=== PATIENT | male | born 1955 | race Caucasian/White ===

== ENCOUNTER 2018-10-06 11:34 | Emergency (ER) | payer OTHER ==
[~2018-10-06] VITALS: Ht 182.9 cm; Wt 112.0 kg
[~2018-10-06 11:34] MED LIST: ABILIFY10 MG PO; CAMPRAL333 M1 PO; CATAPRES0.1 MG PO; CIALIS10 MG PO; HYDROXYZINE HCL25 MG PO; LEXAPRO10 MG PO; LIOTHYRONINE S25 MCG PO; LIPITOR10 MG PO; NALTREXONE HCL50 MG PO; NEURONTIN300 MG PO; NORCO 7.5-3251 EACH PO; OXYCODONE HCL10 MG PO; THIAMINE HCL100 MG PO; TRAMADOL HCL50 MG PO; TRAZODONE HCL50 MG PO; VIVITROL380 MG IM; WELLBUTRIN SR150 MG PO
[2018-10-06] MEDS ORDERED: VENLAFAXINE HC150 MG PO (11:46)
[2018-10-06] MEDS ORDERED: TAMIFLU75 MG PO (12:32)
== END 2018-10-06 12:48 | disposition home or self-care (01) ==
LOC: ED 11:34
DX: R50.9 Fever, unspecified (principal); R05 Cough; R51 Headache; G62.9 Polyneuropathy, unspecified; F32.9 Major depressive disorder, single episode, unspecified; F17.200 Nicotine dependence, unspecified, uncomplicated; Z79.899 Other long term (current) drug therapy
CPT/HCPCS: 87502; 99283

== ENCOUNTER 2021-01-13 19:07 | Emergency (ER) | payer OTHER ==
[~2021-01-13] VITALS: Ht 182.9 cm; Wt 104.3 kg
[~2021-01-13 19:07] MED LIST changes: +TAMIFLU75 MG PO; +VENLAFAXINE HC150 MG PO
[2021-01-13] MEDS ORDERED: NALTREXONE HCL50 MG PO (19:25)
[2021-01-13] MEDS ORDERED: GABAPENTIN600 MG PO (19:26)
== END 2021-01-13 23:27 | disposition home or self-care (01) ==
LOC: ED 19:07
DX: J98.8 Other specified respiratory disorders (principal); B97.89 Other viral agents as the cause of diseases classified elsewhere; Z20.822 Contact with and (suspected) exposure to COVID-19; E78.00 Pure hypercholesterolemia, unspecified; F17.200 Nicotine dependence, unspecified, uncomplicated; Z79.899 Other long term (current) drug therapy
CPT/HCPCS: 71045; 80053; 81001; 83605; 85025; 87040; 99283-25; C9803; U0003

== ENCOUNTER 2021-02-20 02:18 | Emergency (ER) | payer OTHER ==
[~2021-02-20] VITALS: Ht 182.9 cm; Wt 104.3 kg
[~2021-02-20 02:18] MED LIST changes: +GABAPENTIN600 MG PO
[2021-02-20] MEDS ORDERED: PROTONIX40 MG PO (06:11)
--- NOTE | 2021-02-20 12:45 | EKG ---
[facility] [address] [facility] [place] [address] Signed Sinus rhythm with occasional premature ventricular complexes Otherwise normal ECG No previous ECGs available Confirmed by JAMEY WATTS MD ([id number]) on 02/20/2021 12:45:33 PM Electronically Signed By: JAMEY WATTS MD 02/20/21 1245 PATIENT NAME: FLO BRAVO Electrocardiogram DATE OF : 57 PHYSICIAN: JAMEY WATTS MD REPORT #: [id number] REPORT IS CONFIDENTIAL AND NOT TO BE RELEASED WITHOUT AUTHORIZATION
== END 2021-02-20 06:20 | disposition home or self-care (01) ==
LOC: ED 02:18
DX: R07.9 Chest pain, unspecified (principal); E78.00 Pure hypercholesterolemia, unspecified; F17.200 Nicotine dependence, unspecified, uncomplicated; Z79.899 Other long term (current) drug therapy
CPT/HCPCS: 71045; 80053; 83690; 83735; 84484; 85025; 93005; 93010; 99285-25

== ENCOUNTER 2023-06-07 05:55 | Day surgery (SDC) | payer MEDICARE, OTHER ==
[~2023-06-07] VITALS: Ht 182.9 cm; Wt 109.0 kg
[~2023-06-07 05:55] MED LIST changes: +PROTONIX40 MG PO
[2023-06-07 06:08] VITALS: BP 135/83
[2023-06-07] MEDS ORDERED: FLONASE ALLERG9.9 ML NAS (06:10)
[2023-06-07] MEDS ORDERED: APPLE CIDER VI300 MG PO (06:10)
--- NOTE | 2023-06-07 07:18 | NUR ---
PT IN GOOD SPIRITS. CONSENTED TO PRAYER. PRAYED FOR SUCCESSFUL PROCEDURE AND GÓMEZ RECOVERY.
--- NOTE | 2023-06-07 08:33 | NUR ---
06/07/23 0833 Tania Ga PT AWAKE, NO COMPLAINTS OF N/V. ENCOURAGED TO PASS GAS TO RELIEVE ANY STOMACH ACHES.
[2023-06-07 08:52] VITALS: BP 139/88
--- NOTE | 2023-06-07 09:08 | OR ---
[facility] [address] [place], [place] [address] Signed DATE OF OPERATION: 06/07/2023 SURGEON: Phoebe Nichols MD PREOPERATIVE DIAGNOSES: 1. Allergic rhinitis with phlegm. 2. History of distal gastritis. 3. History of hiatal hernia. 4. History of esophagitis. 5. Father with colonic polyps. 6. Diverticulosis. POSTOPERATIVE DIAGNOSES: 1. Mild gastroduodenitis. 2. Small hiatal hernia (40-38 cm). 3. GE junction at 38 cm. 4. Moderate sigmoid diverticulosis. 5. Minimal to moderate internal hemorrhoids. PROCEDURES: 1. EGD with CLOtest and biopsies of the pyloric bulb, antrum and GE junction. 2. Colonoscopy without biopsy. ESTIMATED BLOOD LOSS: None. INDICATIONS: Flo is a 67-year-old gentleman I have known for quite some time. More recently, he went to see his ear, nose and throat surgeon because of phlegm. It looks like he is dealing with allergic rhinitis and using a nasal spray. He was asked to come see me for upper endoscopy by his ear, nose and throat surgeon. I had reviewed his extensive records before he came in the office. I helped him with an upper endoscopy in 2013 at the age of 58. He had some distal gastritis along with distal esophagitis and a small hiatal hernia. He happened to see Dr. Madsen in 2008 at the age of 53 and had the same findings. He had taken an enormous amount of Versed and fentanyl because of his history of alcoholism and Xanax. Consequently, we asked for monitored anesthesia care on this occasion and it worked out very nicely. We know his father has a history of colonic polyps. I helped Flo with followup colonoscopy in 2018 at the age of 62. Again, he had diverticulosis. We asked him to follow up in 5 years. He currently has no lower GI complaints. He said he is enjoying his assisted. In the office, I gave Tyler Electronically Signed By: PHOEBE NICHOLS MD 06/07/23 0908 PATIENT NAME: FLO BRAVO OPERATIVE REPORT DATE OF : 57 REPORT #: [id number] PHYSICIAN: PHOEBE NICHOLS MD PCP: JAEL OSPINA REPORT IS CONFIDENTIAL AND NOT TO BE RELEASED WITHOUT AUTHORIZATION [facility] [address] [place] [id number] Signed pamphlet on both upper and lower endoscopy. He remembers the test well. There is risk including, but not limited to gas bloating, crampy abdominal pain, bleeding, perforation requiring surgery, and missed diagnosis. We also reviewed the written instructions for the bowel prep line by line. He understands an adult person has to take him home afterwards. He had expressed understanding and wished to proceed. DESCRIPTION OF PROCEDURE: Flo was taken into our endoscopy suite and placed in the supine semi-recumbent position. The posterior oropharynx was anesthetized with lidocaine spray. A bite block was utilized for the case. The adult gastroscope was introduced and advanced under direct visualization of the camera. Our anesthesia provider provided propofol infusion. The scope passed nicely out into the duodenum. The duodenum proper was unremarkable with excellent green bile. Again, his pyloric bulb and distal stomach showed some mild patchy erythematous changes. We took a biopsy from the pyloric bulb as well as his distal antrum. There were no ulcerations. We took an additional biopsy of the antrum for CLOtest. Upon retroflexion of the scope, the incisura, body and fundus of the stomach were unremarkable. Once again, we could see a small hiatal hernia. The scope was withdrawn up through the area of the GE junction, which was compliant without stricture. The GE junction is at 38 cm. His hiatal hernia is small roughly 40 cm back to about 38 cm. He had a little irritation along the Z-line, but no overt Davidson's esophagus. We went ahead and took one biopsy along the edge of the Z-line. He had a tiny patch of irritation just above the Z-line. However, no obvious Davidson's esophagus. There was no distal esophagitis on this occasion. His middle and upper esophagus were unremarkable. I really did not see anything as far as inflammation around the vocal cords, arytenoids or his epiglottis. After this, the gas had been suctioned out and the gastroscope removed. Flo had tolerated the upper endoscopy quite well. Flo was rotated into the left lateral decubitus position. He was maintained on propofol infusion per our nurse package collector. A digital rectal exam was performed. He has good sphincter tone. Not much in the way of any external hemorrhoids. There were no masses. Prostate is indurated and moderately enlarged. The left is more prominent than the right. The adult colonoscope was introduced and advanced under direct visualization of the camera up into the cecum itself. His prep was quite excellent. We could easily see the appendiceal orifice and the ileocecal valve. The scope was slowly withdrawn. We took several pictures throughout for photodocumentation. Again, he has left sided diverticulosis. They are moderate in size, few to moderate in number and scattered about. There were no polyps. The rectum was unremarkable. The scope was then retroflexed in the rectum and he does have minimal to moderate internal hemorrhoid columns. After this, the gas was suctioned out and colonoscope removed. Flo tolerated his procedure quite well. Electronically Signed By: PHOEBE NICHOLS MD 06/07/23 0908 PATIENT NAME: FLO BRAVO OPERATIVE REPORT DATE OF : 57 REPORT #: [id number] PHYSICIAN: PHOEBE NICHOLS MD PCP: JAEL OSPINA REPORT IS CONFIDENTIAL AND NOT TO BE RELEASED WITHOUT AUTHORIZATION [facility] [address] [place], [place] [address] Signed RECOMMENDATIONS: I will see Flo back in my office in 7 to 14 days to review his results. These are the exact same results he has had now over multiple upper and lower endoscopies. He will always need monitored anesthesia care in the future. He will stay on the five year rotation because of his father's history of colonic polyps. MD GABY Gayle/CONNORL /[id number] cc: MD Josr Gayle MD Copies: PHOEBE NICHOLS MD, RUSSEL J MD ~ Electronically Signed By: PHOEBE NICHOLS MD 06/07/23 0908 PATIENT NAME: FLO BRAVO OPERATIVE REPORT DATE OF : 57 REPORT #: [id number] PHYSICIAN: PHOEBE NICHOLS MD PCP: JAEL OSPINA REPORT IS CONFIDENTIAL AND NOT TO BE RELEASED WITHOUT AUTHORIZATION
== END 2023-06-07 08:57 | disposition home or self-care (01) ==
LOC: DS 05:55 → OPS 05:55 → DS 07:30 → OPS 07:30 → DS 09:00
PROVIDERS: ATTEND Colon & Rectal Surgery
PROC: 0DB48ZX Excision of Esophagogastric Junction, Via Natural or Artificial Opening Endoscopic, Diagnostic (ICD-10-PCS; 2023-06-07)
PROC: 0DJD8ZZ Inspection of Lower Intestinal Tract, Via Natural or Artificial Opening Endoscopic (ICD-10-PCS; 2023-06-07)
PROC: 0DB98ZX Excision of Duodenum, Via Natural or Artificial Opening Endoscopic, Diagnostic (ICD-10-PCS; principal; 2023-06-07 07:30)
PROC: 0DB68ZX Excision of Stomach, Via Natural or Artificial Opening Endoscopic, Diagnostic (ICD-10-PCS; 2023-06-07 07:30)
DX: K29.90 Gastroduodenitis, unspecified, without bleeding (principal); K21.9 Gastro-esophageal reflux disease without esophagitis; M17.0 Bilateral primary osteoarthritis of knee; G62.9 Polyneuropathy, unspecified; E78.5 Hyperlipidemia, unspecified; F41.8 Other specified anxiety disorders; F17.200 Nicotine dependence, unspecified, uncomplicated; Z83.719 Family history of colon polyps, unspecified; Z87.19 Personal history of other diseases of the digestive system; K44.9 Diaphragmatic hernia without obstruction or gangrene; K57.30 Diverticulosis of large intestine without perforation or abscess without bleeding
CPT/HCPCS: 00813; 36415; 87077; 88305; J0690; J2001; J2704; J3010; J7121